=== PATIENT | male | born 1995 | race African-American/Black ===

== ENCOUNTER 2018-09-16 18:53 | Emergency (ER) | payer SELFPAY ==
[~2018-09-16] VITALS: Ht 177.8 cm; Wt 87.1 kg
--- OUTSIDE RECORDS SUMMARY | 2018-09-16 18:56 | XMS REPORT | Summary of Care ---
Author Author [facility] Address Unknown Phone Unavailable Encounter HQ Encntr_alias(FIN) [id number] Date(s): 07/19/17 - 07/19/[address], [address] [place] [address]- [phone] Attending Physician: Wilda Turner MD Vital Signs No data available for this section Problem List No data available for this section Allergies, Adverse Reactions, Alerts No data available for this section Medications No data available for this section Results No data available for this section Immunizations No data available for this section Procedures No data available for this section Social History No data available for this section Assessment and Plan No data available for this section
--- OUTSIDE RECORDS SUMMARY | 2018-09-16 18:56 | XMS REPORT | Summary of Care ---
Author Author [facility] Address Unknown Phone Unavailable Encounter HQ Encntr_alias(FIN) [id number] Date(s): 06/02/17 - 06/02/[address], [address] [place] [address]- [phone] Attending Physician: Wilda Turner MD Vital Signs No data available for this section Problem List No data available for this section Allergies, Adverse Reactions, Alerts No data available for this section Medications No data available for this section Results No data available for this section Immunizations No data available for this section Procedures No data available for this section Social History Social History Type Response Smoking Status Never smoker; Exposure to Tobacco Smoke None; Cigarette Smoking Last 365 Days No; Reg Smoking Cessation Counseling No entered on: 08/11/17 Assessment and Plan No data available for this section
--- OUTSIDE RECORDS SUMMARY | 2018-09-16 18:56 | XMS REPORT | Continuity of Care Document ---
Author Author [employer] [facility] [employer] Address Unknown Phone Unavailable Care Team Providers [facility] [employer] Illustrator Name Role Phone [employer] Information [employer]Man Unavailable Unavailable Problems No Data Provided for This Section Medications No Data Provided for This Section Allergies, Adverse Reactions, Alerts No Known Medication Allergies Immunizations No Data Provided for This Section Results No Data Provided for This Section Pathology Reports No Data Provided for This Section Diagnostic Reports No Data Provided for This Section Consultation Notes No Data Provided for This Section Discharge Summaries No Data Provided for This Section History and Physicals No Data Provided for This Section Vital Signs Vital Sign Value Date Comments Source BMI Calculated 27.82 08/11/2017 [facility] Weight 87.955 08/11/2017 [facility] Height 177.8 cm 08/11/2017 [facility] Heart Rate 65 08/11/2017 [facility] Temperature Oral (F) 98.4 F 08/11/2017 [facility] Systolic (mm Hg) 115 08/11/2017 [facility] Diastolic (mm Hg) 72 08/11/2017 [facility] Encounters Location Location Details Encounter Type Encounter Number Reason For Visit Attending Provider ADM Date DC Date Status Source [facility] Ambulatory Pre-Reg [id number] Chelle Iva-Michel 06/02/2017 06/02/2017 Medical Group [facility] Ambulatory Pre-Reg [id number] Chelle Iva-Michel 07/19/2017 07/19/2017 [facility] Outpatient [id number] CHELLE IVA- MICHEL 07/26/2017 Active [facility] Ambulatory Pre-Reg [id number] Chelle Iva-Michel 07/26/2017 07/26/2017 [facility] Outpatient [id number] CHELLE IVA- MICHEL 08/11/2017 Active [facility] Outpatient [id number] Chelle Iva-Michel 08/11/2017 08/12/2017 [facility] Procedures No Data Provided for This Section Assessment and Plan No Data Provided for This Section Plan of Care No Data Provided for This Section Social History Social History Date Source Social History TypeResponse Smoking Status Never smoker; Exposure to Tobacco Smoke None; Cigarette Smoking Last 365 Days No; Reg Smoking Cessation Counseling No entered on: 08/11/17 08/11/2017 [facility] Family History No Data Provided for This Section Advance Directives No Data Provided for This Section Functional Status No Data Provided for This Section
--- OUTSIDE RECORDS SUMMARY | 2018-09-16 18:56 | XMS REPORT | Summary of Care ---
Author Author [facility] Address Unknown Phone Unavailable Encounter HQ Encntr_alimckenzie(FIN) [id number] Date(s): 08/11/17 - 08/11/17 [place] [id number] [facility], [facility] [address] [place] [address]- [phone] Discharge Disposition: Home or Self Care Attending Physician: Wilda Turner MD Vital Signs Most recent to 1 oldest [Reference Range]: Height 177.8 cm (08/11/17 10:49 AM) Temperature Oral 98.4 DegF [96.4-99.1 DegF] (08/11/17 10:49 AM) Blood Pressure 115/72 mmHg [90-140/60-90 mmHg] (08/11/17 10:49 AM) Peripheral Pulse 65 bpm Rate [60-100 bpm] (08/11/17 10:49 AM) Weight 87.955 kg (08/11/17 10:49 AM) Body Mass Index 27.82 m2 (08/11/17 10:49 AM) Problem List No data available for this section Allergies, Adverse Reactions, Alerts No data available for this section Medications No Known Medications Results No data available for this section [...]
--- OUTSIDE RECORDS SUMMARY | 2018-09-16 18:56 | XMS REPORT | Summary of Care ---
Author Author [facility] Address Unknown Phone Unavailable Encounter HQ Encntr_alias(FIN) [id number] Date(s): 07/19/17 - 07/19/[address], [address] [place] [address]- [phone] Attending Physician: Wilda Turner MD Vital Signs [...]
--- OUTSIDE RECORDS SUMMARY | 2018-09-16 18:56 | XMS REPORT | Summary of Care ---
Author Author [facility] Address Unknown Phone Unavailable Encounter HQ Encntr_alias(FIN) [id number] Date(s): 07/26/17 - 07/26/[address], [address] [place] [address]- [phone] Attending Physician: Wilda Turner MD Vital Signs [...]
--- OUTSIDE RECORDS SUMMARY | 2018-09-16 18:56 | XMS REPORT | Summary of Care ---
Author Author [facility] Address Unknown Phone Unavailable Encounter HQ Encntr_alias(FIN) [id number] Date(s): 07/26/17 - 07/26/[address], [address] [place] [address]- [phone] Attending Physician: Wilda Turner MD Vital Signs [...]
[2018-09-16] MEDS ORDERED: HYDROCODONE/APAP 5MG-325MG TAB PO NR (19:15)
[2018-09-16] MEDS ORDERED: IBUPROFEN 400 MG TAB PO NR (19:15)
[2018-09-16] MEDS ORDERED: CYCLOBENZAPRINE HCL 10 MG TAB PO NR (19:15)
--- NOTE | 2018-09-16 19:51 | Diagnostic Imaging Report ---
Exam: Lumbar spine 2 views History: Back pain Comparison: None. Findings: No fracture or malalignment. Disc spaces preserved. No abnormal soft tissue calcification or soft tissue defect. Impression: No acute osseous abnormality Signed by: Dr. Eagle Wagner M.D. on 09/16/2018 7:47 PM
--- NOTE | 2018-09-16 21:05 | Diagnostic Imaging Report ---
Exam: Cervical spine AP lateral History: Neck pain Comparison: None. Findings: No fracture or malalignment. Disc spaces preserved. No abnormal soft tissue calcification or soft tissue defect. Impression: No acute osseous abnormality Signed by: Dr. Eagle Wagner M.D. on 09/16/2018 9:01 PM
--- NOTE | 2018-09-16 21:35 | NUR ---
PT REPORTS PAIN DECREASED AFTER MEDICATIONS. AWAKE ALERT SKIN W/D RESP NONLAB, NAD NOTED.
== END 2018-09-16 22:00 | disposition home or self-care (01) ==
LOC: ER 18:53
DX: M54.2 Cervicalgia (principal); M54.5 Low back pain; S16.1XXA Strain of muscle, fascia and tendon at neck level, initial encounter; S39.012A Strain of muscle, fascia and tendon of lower back, initial encounter; V43.52XA Car driver injured in collision with other type car in traffic accident, initial encounter; Y92.488 Other paved roadways as the place of occurrence of the external cause
CPT/HCPCS: 72040; 72100; 99283